=== PATIENT | male | born 2000 | race Caucasian/White ===

== ENCOUNTER 2019-10-18 10:24 | Emergency (ER) | payer MEDICAID ==
[~2019-10-18] VITALS: Ht 175.3 cm; Wt 69.9 kg
[2019-10-18 10:33] VITALS: BP 131/84; Ht 175.3 cm; Wt 69.9 kg
== END 2019-10-18 10:58 | disposition home or self-care (01) ==
LOC: ED 10:24
DX: J11.1 Influenza due to unidentified influenza virus with other respiratory manifestations (principal)